=== PATIENT | female | born 1945 | race Caucasian/White ===

== ENCOUNTER 2016-10-10 11:07 | Inpatient (IN) | payer MEDICARE ==
[2016-10-10] MEDS ORDERED: SODIUM CHLORIDE 0.9% 1,000 ML IV STA (11:28)
[2016-10-10] MEDS ORDERED: ASPIRIN 81 MG CHEW PO STA (11:28)
[2016-10-10] MEDS ORDERED: NITROGLYCERIN SL TABS 0.4 MG TAB SUBLINGUAL STA ×3 (11:28)
--- NOTE | 2016-10-10 11:32 | ED ---
General Adult HPI - General Chief complaint: Chest Pain Stated complaint: chest pain Time Seen by Provider: 10/10/16 11:19 Source: patient, RN notes reviewed Mode of arrival: wheelchair Limitations: no limitations - History of Present Illness Initial comments: Patient is a pleasant [age]-year-old female presenting to the emergency department complaining of chest discomfort. Onset was around 10 AM. Discomfort is sharp. Originally patient states no radiation then later states it does radiate to the back. Patient does have some associated nausea and dyspnea. No diaphoresis. No history of similar symptoms previously. Discomfort is somewhat severe at this point. No leg pain or leg swelling. Area of discomfort is the lower sternal region. - Related Data Home Medications Medication Instructions Recorded Confirmed Aspirin 81 mg PO DAILY 10/10/16 10/10/16 Melatonin 5 mg PO HS 10/10/16 10/10/16 Metoprolol Tartrate [Lopressor] 50 mg PO DAILY 10/10/16 10/10/16 Niacin 500 mg PO TID 10/10/16 10/10/16 Omeprazole 20 - 40 mg PO DAILY PRN 10/10/16 10/10/16 Sertraline [Zoloft] 12.5 mg PO DAILY 10/10/16 10/10/16 Allergies Allergy/AdvReac Type Severity Reaction Status Date / Time Sulfa (Sulfonamide AdvReac Rash/Hives Verified 10/10/16 11:37 Antibiotics) Review of Systems ROS Statement: Those systems with pertinent positive or pertinent negative responses have been documented in the HPI. ROS Other: All systems not noted in ROS Statement are negative. Constitutional: Denies: fever Eyes: Denies: eye pain ENT: Denies: throat pain Respiratory: Reports: dyspnea. Denies: cough Cardiovascular: Reports: chest pain Endocrine: Denies: fatigue Gastrointestinal: Reports: nausea Genitourinary: Denies: dysuria Musculoskeletal: Denies: arthralgia Skin: Denies: rash Neurological: Denies: headache Past Medical History Past Medical History: Coronary Artery Disease (CAD), GERD/Reflux, Hyperlipidemia , Hypertension History of Any Multi-Drug Resistant Organisms: None Reported Past Surgical History: Orthopedic Surgery Past Psychological History: No Psychological Hx Reported Smoking Status: Current every day smoker Past Alcohol Use History: None Reported Past Drug Use History: None Reported General Exam Limitations: no limitations General appearance: alert Head exam: Present: atraumatic Eye exam: Present: normal appearance, PERRL ENT exam: Present: normal oropharynx Neck exam: Present: normal inspection Respiratory exam: Present: normal lung sounds bilaterally. Absent: chest wall tenderness Cardiovascular Exam: Present: regular rate, normal rhythm Expanded Peripheral pulses: 2+: Radial (R), Radial (L), Dorsalis Pedis (R), Dorsalis Pedis (L) GI/Abdominal exam: Present: soft, tenderness (Mild tenderness in the epigastric region, patient states her discomfort is more superior to this however). Absent : distended Extremities exam: Present: normal inspection. Absent: pedal edema, calf tenderness Back exam: Present: normal inspection Neurological exam: Present: alert Psychiatric exam: Present: normal affect, normal mood Skin exam: Present: normal color Course Vital Signs 10/10/16 10/10/16 10/10/16 11:10 11:46 11:52 Temperature 97.9 F Pulse Rate 87 73 78 Respiratory 24 Rate Blood Pressure 174/86 158/72 142/66 O2 Sat by Pulse 100 Oximetry 10/10/16 11:57 Temperature Pulse Rate 80 Respiratory Rate Blood Pressure 128/55 O2 Sat by Pulse Oximetry EKG Findings - EKG Comments: EKG Findings:: Normal sinus rhythm 76. DE 122. QRS 78. QT 388. QTC 436. Normal axis. Normal QRS. Normal ST-T. Medical Decision Making - Medical Decision Making Patient reevaluated and resting comfortably in bed. Symptoms free at this time. Patient and family updated on results and plan. Case was discussed in detail with Dr. Joseph, who will admit for hospital call. - Lab Data Result diagrams: 10/10/16 11:40 10/10/16 11:40 Lab Results 10/10/16 10/10/16 10/10/16 Range/Units 11:40 11:40 11:40 WBC 7.9 (3.8-10.6) k/uL RBC 4.62 (3.80-5.40) m/uL Hgb 13.7 (11.4-16.0) gm/dL Hct 44.5 (34.0-46.0) % MCV 96.3 (80.0-100.0) fL MCH 29.7 (25.0-35.0) pg MCHC 30.8 L (31.0-37.0) g/dL RDW 13.2 (11.5-15.5) % Plt Count 183 (150-450) k/uL Neutrophils % 76 % Lymphocytes % 17 % Monocytes % 5 % Eosinophils % 1 % Basophils % 0 % Neutrophils # 6.0 (1.3-7.7) k/uL Lymphocytes # 1.3 (1.0-4.8) k/uL Monocytes # 0.4 (0-1.0) k/uL Eosinophils # 0.1 (0-0.7) k/uL Basophils # 0.0 (0-0.2) k/uL PT (9.0-12.0) sec INR (<1.1) APTT (22.0-30.0) sec D-Dimer (<0.60) mg/L FEU Sodium 138 (137-145) mmol/L Potassium 4.2 (3.5-5.1) mmol/L Chloride 102 (98-107) mmol/L Carbon Dioxide 23 (22-30) mmol/L Anion Gap 13 mmol/L BUN 16 (7-17) mg/dL Creatinine 0.62 (0.52-1.04) mg/dL Est GFR (MDRD) Af Amer >60 (>60 ml/min/1.73 sqM) Est GFR (MDRD) Non-Af >60 (>60 ml/min/1.73 sqM) Glucose 161 H (74-99) mg/dL Calcium 9.7 (8.4-10.2) mg/dL Magnesium 1.5 L (1.6-2.3) mg/dL Total Bilirubin 1.5 H (0.2-1.3) mg/dL AST 223 H (14-36) U/L ALT 87 H (9-52) U/L Alkaline Phosphatase 165 H (38-126) U/L Total Creatine Kinase 99 (30-135) U/L CK-MB (CK-2) 1.7 (0.0-2.4) ng/mL CK-MB (CK-2) Rel Index 1.7 Troponin I <0.012 (0.000-0.034) ng/mL Total Protein 7.0 (6.3-8.2) g/dL Albumin 4.2 (3.5-5.0) g/dL Amylase 56 (30-110) U/L Lipase 33 (23-300) U/L // Range/Units 11:40 WBC (3.8-10.6) k/uL RBC (3.80-5.40) m/uL Hgb (11.4-16.0) gm/dL Hct (34.0-46.0) % MCV (80.0-100.0) fL MCH (25.0-35.0) pg MCHC (31.0-37.0) g/dL RDW (11.5-15.5) % Plt Count (150-450) k/uL Neutrophils % % Lymphocytes % % Monocytes % % Eosinophils % % Basophils % % Neutrophils # (1.3-7.7) k/uL Lymphocytes # (1.0-4.8) k/uL Monocytes # (0-1.0) k/uL Eosinophils # (0-0.7) k/uL Basophils # (0-0.2) k/uL PT 10.5 (9.0-12.0) sec INR 1.0 (<1.1) APTT 24.7 (22.0-30.0) sec D-Dimer 0.34 (<0.60) mg/L FEU Sodium (137-145) mmol/L Potassium (3.5-5.1) mmol/L Chloride (98-107) mmol/L Carbon Dioxide (22-30) mmol/L Anion Gap mmol/L BUN (7-17) mg/dL Creatinine (0.52-1.04) mg/dL Est GFR (MDRD) Af Amer (>60 ml/min/1.73 sqM) Est GFR (MDRD) Non-Af (>60 ml/min/1.73 sqM) Glucose (74-99) mg/dL Calcium (8.4-10.2) mg/dL Magnesium (1.6-2.3) mg/dL Total Bilirubin (0.2-1.3) mg/dL AST (14-36) U/L ALT (9-52) U/L Alkaline Phosphatase (38-126) U/L Total Creatine Kinase (30-135) U/L CK-MB (CK-2) (0.0-2.4) ng/mL CK-MB (CK-2) Rel Index Troponin I (0.000-0.034) ng/mL Total Protein (6.3-8.2) g/dL Albumin (3.5-5.0) g/dL Amylase (30-110) U/L Lipase (23-300) U/L - Radiology Data Radiology results: image reviewed (Chest x-ray and abdominal x-ray shows no acute process) Disposition Clinical Impression: Chest pain Disposition: ADMITTED IP TO THIS [facility] Referrals: Nonstaff,Physician [REFERRING] - 1-2 days Time of Disposition: 14:05
[2016-10-10 12:04] LABS: Basophils % (A) 0 %; CH 31.3; CHCM 32.7; Eosinophils # (A) 0.1 k/uL (0-0.7); Eosinophils % (A) 1 %; HCT 44.5 % (34.0-46.0); HDW 2.27; HGB 13.7 gm/dL (11.4-16.0); Luc # (Auto) 0.09; Luc % (Auto) 1; Lymphocytes # (A) 1.3 k/uL (1.0-4.8); Lymphocytes % (A) 17 %; MCH 29.7 pg (25.0-35.0); MCHC 30.8 g/dL (31.0-37.0); MCV 96.3 fL (80.0-100.0); Mean Platelet Volume 8.5; Monocytes # (A) 0.4 k/uL (0-1.0); Monocytes % (A) 5 %; Neutrophils % (A) 76 %; RBC 4.62 m/uL (3.80-5.40); RDW 13.2 % (11.5-15.5); WBC 7.9 k/uL (3.8-10.6); WBC (Perox) 8.23
[2016-10-10 12:14] LABS: Partial Thromboplastin Time 24.7 sec (22.0-30.0); Prothrombin Time 10.5 sec (9.0-12.0)
[2016-10-10 12:17] LABS: ALT 87 U/L (9-52); AST 223 U/L (14-36); Alkaline Phosphatase 165 U/L (38-126); Amylase 56 U/L (30-110); Anion Gap 13 mmol/L; Blood Urea Nitrogen 16 mg/dL (7-17); Calcium 9.7 mg/dL (8.4-10.2); Carbon Dioxide 23 mmol/L (22-30); Chloride 102 mmol/L (98-107); Glucose 161 mg/dL (74-99); Magnesium 1.5 mg/dL (1.6-2.3); Non-African American GFR(MDRD) >60 (>60 ml/min/1.73 sqM); Potassium 4.2 mmol/L (3.5-5.1); Sodium 138 mmol/L (137-145); Total Bilirubin 1.5 mg/dL (0.2-1.3)
--- NOTE | 2016-10-10 12:26 | XR ---
Abdomen HISTORY: Epigastric pain and shortness of breath Frontal view of the abdomen submitted on 2 images Lung bases show some questionable atelectatic change on the left. There is no pneumoperitoneum or bow el obstruction. There are overlying cardiac leads. Degenerative disc changes are present in the visua lized spine, there is an S-shaped thoracic lumbar scoliosis. IMPRESSION: Nonobstructive bowel gas pattern.
--- NOTE | 2016-10-10 12:30 | XR ---
EXAMINATION TYPE: XR chest 2V DATE OF EXAM: 10/10/2016 12:14 PM COMPARISON: Abdomen same date HISTORY: Chest pain TECHNIQUE: Frontal and lateral views of the chest are obtained. FINDINGS: There is a dextroscoliosis of the midthoracic spine. Bandlike area of increased attenuatio n is present at the left lung base. Prominent lung volume may be indicative of underlying COPD. Heart size is within normal limits. No pneumothorax or pleural effusion. IMPRESSION: Probable basilar atelectasis or scarring.
[2016-10-10 12:37] LABS: Creatine Kinase 99 U/L (30-135)
[2016-10-10 12:50] LABS: Creatine Kinase MB 1.7 ng/mL (0.0-2.4); Troponin I <0.012 ng/mL (0.000-0.034)
[2016-10-10] MEDS ORDERED: NITROGLYCERIN SL TABS 0.4 MG TAB SUBLINGUAL PRN (14:05)
[2016-10-10] MEDS ORDERED: MAGNESIUM SULFATE-D5W PMX 1 GM in DEXTROSE/WATER 1 100ML.BAG IVPB ONE ×2 (15:00→18:00)
--- NOTE | 2016-10-10 15:20 | US ---
EXAMINATION TYPE: US gallbladder DATE OF EXAM: 10/10/2016 COMPARISON: NONE CLINICAL HISTORY: Pain. Epigastric pain, nausea, patient not NPO: states she ate 4 hours prior to exa m, exam done portable in ER EXAM MEASUREMENTS: Liver Length: 16.2 cm Gallbladder Wall: 0.2 cm CBD: 0.6 cm Right Kidney: 10.3 x 4.7 x 5.2 cm Pancreas: tail obscured by overlying midline bowel gas, duct measures 0.3cm Liver: visualized portions wnl, limited by rib shadowing Gallbladder: 2.0cm hyperechoic shadowing area along posterior wall Evidence for sonographic Reynoso's sign: no CBD: measures in upper limits of normal at 0.6cm Right Kidney: no hydronephrosis or renal masses seen at this time, limited by rib shadowing and over lying bowel gas There is no ascites. IMPRESSION: There may be tumefactive sludge within the gallbladder. Gallbladder appears somewhat dist ended. Bile duct measurement is at the upper limit of normal.
[2016-10-10] MEDS ORDERED: ONDANSETRON 4 MG/2 ML VIAL IVP STA (15:37)
[2016-10-10 18:11] LABS: Creatine Kinase 64 U/L (30-135)
[2016-10-10 18:24] LABS: Creatine Kinase MB 1.2 ng/mL (0.0-2.4); Troponin I <0.012 ng/mL (0.000-0.034)
[2016-10-10] MEDS: NITROGLYCERIN OINT 1 INCH/GM PACKET TOPICAL SCH (18:53)
[2016-10-10] MEDS ORDERED: FLUCONAZOLE 150 MG TAB PO STA (19:41)
[2016-10-10] MEDS: NIACIN TR 500 MG CAPSULE.ER PO SCH (20:22)
[2016-10-10] MEDS: MELATONIN 5 MG TABLET PO SCH (20:22)
[2016-10-10] MEDS: AMPICILLIN-SULBACTAM 3 GM in SODIUM CHLORIDE 0.9% 100 ML IVPB SCH (20:22)
[2016-10-10] MEDS: SODIUM CHLORIDE 0.9% 1,000 ML IV SCH (20:33)
--- NOTE | 2016-10-10 21:48 | HP ---
The patient is a very pleasant 71-year-old female who came into the emergency department with complaints of epigastric abdominal pain, sharp in nature, radiating to the shoulder blades and patient also has epigastric right upper quadrant tenderness. Patient was nauseous and patient was complaining of chills and there is no documented fever yet. Patient does not have any leukocytosis at this point of time. Patient is admitted for rule out acute coronary syndrome and Cardiology was consulted. Patient's epigastric abdominal pain resolved with 3 sublingual nitroglycerin and Cardiology will further evaluate the patient regarding that. I mostly believe her symptoms are from her gallbladder. Surgery will be consulted. Unasyn will be empirically started. Patient may either have cholelithiasis or cholecystitis. The patient's Reynoso sign is positive. Pain is nonpleuritic, not associated with food, but started after coffee, she says. REVIEW OF SYSTEMS: CONSTITUTIONAL: No fever, no malaise, no fatigue. HEENT: No recent visual problems or hearing problems. Denied any sore throat. CARDIOVASCULAR: As described in HPI. PULMONARY: No shortness of breath, no cough, no hemoptysis. GASTROINTESTINAL: As described in HPI. NEUROLOGICAL: No headaches, no weakness, no numbness. HEMATOLOGICAL: Denies any bleeding or petechiae. GENITOURINARY: Denies any burning micturition, frequency, or urgency. MUSCULOSKELETAL/RHEUMATOLOGICAL: Denies any joint pain, swelling, or any muscle pain. ENDOCRINE: Denies any polyuria or polydipsia. The rest of the 14 point review of systems is negative. Home medications include: 1. Aspirin. 2. Melatonin. 3. Metoprolol. 4. Niacin. 5. Omeprazole. 6. Sertraline. 7. Sulfa drugs. Past medical history is significant for coronary artery disease, gastroesophageal reflux disease, hyperlipidemia, hypertension. The patient does smoke. Denied any alcohol abuse or any drug abuse. FAMILY HISTORY: Denied any premature coronary artery disease and significant history of cancer in the family. PHYSICAL EXAMINATION: VITAL SIGNS: Temperature 98.4, pulse of 86, respiratory rate of 18, blood pressure 128/66, saturating at 97% on room air. GENERAL: The patient is alert and oriented x3, not in any acute distress. Well developed, well nourished. HEENT: Pupils are round and equally reacting to light. EOMI. No scleral icterus. No conjunctival pallor. Normocephalic, atraumatic. No pharyngeal erythema. No thyromegaly. CARDIOVASCULAR: S1 and S2 present. No murmurs, rubs, or gallops. PULMONARY: Chest is clear to auscultation, no wheezing or crackles. ABDOMEN: Abdomen is soft. Patient has minimal tenderness in the right upper quadrant area. Reynoso sign is positive. MUSCULOSKELETAL: No joint swelling or deformity. EXTREMITIES: No cyanosis, clubbing, or pedal edema. NEUROLOGICAL: Gross neurological examination did not reveal any focal deficits. SKIN: No rashes. LABORATORY DATA: CBC, CMP are abnormal for elevated bilirubin of 1.5, AST is 223, ALT is 87, alkaline phosphatase is 165. Patient had a chest x-ray which did not show any pneumonic process. Abdominal x-ray: Nonobstructive bowel gas pattern. Chest x-ray did show some atelectasis. Ultrasound of the gallbladder did show some sludge within the gallbladder with minimal distention of the gallbladder. ASSESSMENT AND PLAN: 1. Epigastric abdominal pain. Patient is admitted for rule out acute coronary syndrome. Patient most likely has cholelithiasis or cholecystitis. Surgery will be consulted. Rest of the further management from cardiology perspective as per Cardiology. 2. Nicotine abuse history. Counseling was provided regarding that. 3. History of coronary artery disease. 4. Gastroesophageal reflux disease. 5. Hyperlipidemia. 6. Hypertension. 7. For above-mentioned chronic medical problems, will go ahead and continue her home medications. Patient's primary care physician is out of town in [facility].
--- NOTE | 2016-10-10 22:18 | P.PN ---
Progress Note - Text Please see full dictated report. Patient comes in with atypical chest pain with US showing gallstones/sludge. Elevated liver enzymes and clinical picture consistent with symptomatic gallstones. Her son also has multiple gallbladder attacks. On exam, no moderate abdominal pain. Patient resides in [place] and has all care at [facility] as she was camping away from home for the holidays. Recommend repeat comprehensive metabolic panel tonight for improvement of chemistries. Also, recommend local surgical care for lap cholecystectomy per her wishes.
[2016-10-10 22:55] LABS: Alkaline Phosphatase 306 U/L (38-126); Anion Gap 9 mmol/L; Blood Urea Nitrogen 11 mg/dL (7-17); Calcium 9.3 mg/dL (8.4-10.2); Carbon Dioxide 28 mmol/L (22-30); Chloride 103 mmol/L (98-107); Glucose 100 mg/dL (74-99); Non-African American GFR(MDRD) >60 (>60 ml/min/1.73 sqM); Potassium 4.3 mmol/L (3.5-5.1); Sodium 140 mmol/L (137-145); Total Bilirubin 2.6 mg/dL (0.2-1.3); Total Protein 7.1 g/dL (6.3-8.2)
[2016-10-10 23:02] LABS: ALT 1177 U/L (9-52)
[2016-10-10 23:08] LABS: Creatine Kinase 62 U/L (30-135)
[2016-10-10 23:11] LABS: Creatine Kinase MB 1.3 ng/mL (0.0-2.4); Troponin I <0.012 ng/mL (0.000-0.034)
[2016-10-10 23:17] LABS: AST 2048 U/L (14-36)
[2016-10-11] MEDS ORDERED: AMPICILLIN-SULBACTAM 2 GM in SODIUM CHLORIDE 0.9% 50 ML IVPB SCH ×2
[2016-10-11] MEDS: AMPICILLIN-SULBACTAM 3 GM in SODIUM CHLORIDE 0.9% 100 ML IVPB SCH ×5 (02:33→23:40)
[2016-10-11] MEDS: NITROGLYCERIN OINT 1 INCH/GM PACKET TOPICAL SCH ×5 (03:18→23:41)
[2016-10-11 07:37] LABS: ALT 804 U/L (9-52); Alkaline Phosphatase 238 U/L (38-126); Anion Gap 9 mmol/L; Blood Urea Nitrogen 9 mg/dL (7-17); Calcium 8.5 mg/dL (8.4-10.2); Carbon Dioxide 25 mmol/L (22-30); Chloride 107 mmol/L (98-107); Cholesterol 140 mg/dL (<200); Glucose 86 mg/dL (74-99); HDL Cholesterol 63 mg/dL (40-60); Non-African American GFR(MDRD) >60 (>60 ml/min/1.73 sqM); Potassium 4.2 mmol/L (3.5-5.1); Sodium 141 mmol/L (137-145); Total Bilirubin 2.4 mg/dL (0.2-1.3); Triglycerides 45 mg/dL (<150)
[2016-10-11 07:50] LABS: AST 979 U/L (14-36)
[2016-10-11] MEDS ORDERED: SERTRALINE 25 MG TAB PO SCH ×2 (09:00→15:34)
--- NOTE | 2016-10-11 10:07 | CONS ---
DATE OF CONSULTATION: This 71-year-old female who was camping at [facility] who had a sudden onset of epigastric discomfort with pain in the back almost at the same level. The pain was simultaneous. It did not radiate anywhere else. She was nauseous, sweaty and threw up. She was admitted and Cardiology was consulted because the pain was relieved with 3 sublingual nitroglycerin. Her first 12-lead ECG showed normal sinus rhythm with normal ST segments. Three set of cardiac enzymes have been normal. A second 12-lead ECG did show a very subtle ST depression inferolaterally. Currently she is pain free, but 3 sets of cardiac enzymes are normal. Importantly, her labs show that her liver enzymes were abnormal and showed an upward-downward trend. REVIEW OF SYSTEMS: No fever, chills or rigors. No cough or expectoration. She did have abdominal symptoms. No hematuria or dysuria. No strokes or seizures. No skin lesions. PAST MEDICAL HISTORY: She is nondiabetic, but she has hypertension and dyslipidemia. Medications include aspirin, melatonin, metoprolol, niacin, omeprazole, sertraline. Past history is also significant for history of coronary artery disease ( ). SOCIAL HISTORY: No alcohol or drug use. No family history of premature coronary artery disease. On examination, her blood pressure is 150/71 mmHg, pulse rate is in the 90s. She is afebrile, 98.7. Head and neck examination is normal. No JVD, thyromegaly, carotid bruits. Heart sounds S1, S2 are normal. No murmurs, no gallops. No rub. Breath sounds are normal. No rhonchi. No crackles. Equal air entry bilaterally. Abdomen is soft. There is a very subtle tenderness in the epigastric area, but there is no rebound. No guarding. Extremities are warm, no edema. The 12-lead ECG is described as above. Labs are as described as above. Significant rise and fall trend in the LFTs. IMPRESSION: 1. Epigastric discomfort, normal cardiac enzymes and a very subtle ECG change on serial ECG examination. I doubt that this is coronary in origin. 2. Most likely abdominal origin given the trend in the liver enzymes. 3. Dyslipidemia. 4. Hypertension. SUGGEST: Continue antihypertensive therapy and proceed with abdominal evaluation and treatment as appropriate. From a cardiac standpoint, she can follow up with her primary physician's in the [place] area and the [facility]. I will get a 2-D echo and Doppler study on her today and from a cardiac standpoint, she is cleared for any intervention or disposition thereafter.
[2016-10-11] MEDS: PANTOPRAZOLE 40 MG/10 ML VIAL IVP SCH (10:32)
[2016-10-11] MEDS: NIACIN TR 500 MG CAPSULE.ER PO SCH ×3 (10:33→20:38)
[2016-10-11] MEDS: METOPROLOL TARTRATE 50 MG TAB PO SCH (10:33)
[2016-10-11] MEDS: ASPIRIN 325 MG TAB PO SCH (12:13)
[2016-10-11] MEDS: SODIUM CHLORIDE 0.9% 1,000 ML IV SCH ×2 (12:14→18:35)
--- NOTE | 2016-10-11 12:47 | P.GSCN ---
History of Present Illness Consult date: 10/10/16 Reason for Consult: Gallstones Requesting physician: Mir Joseph History of present illness: The patient is a pleasant 71-year-old female who was admitted secondary to atypical chest pain after eating hotdogs camping the other day. She had an abdominal US showing gallstones/sludge. She also presented with elevated liver enzymes. She denies any moderate abdominal pain upon admission. She reports with nitro including aspirin, her chest pain had improved. She reports being a resident of [place], [place] and has all care at [facility] as she was camping away from home for the holidays. Secondary to her ultrasound findings, Gen. surgery is consulted for further evaluation and management. Review of Systems CONSTITUTIONAL: Denies any fever or chills. General medical care at [facility]. HEENT: Denies any trouble with vision, hearing or nosebleeds. No difficulty swallowing. LYMPHATIC: The patient denies any lumps and bumps around the neck. ENDOCRINE: Denies any thyroid disorders. Denies any blood sugar glucose intolerance. RESPIRATORY: Denies pneumonia. Denies any troubles with breathing or dyspnea on exertion. CARDIOVASCULAR: Denies any chest pain, palpitations, or recent heart attacks. GASTROINTESTINAL: Has previous colonoscopy. Has intolerance to cheese and milk. Ultrasound consistent with gallstones. Has gastroesophageal reflux disease. GENITOURINARY: Denies any blood in urine or increased urinary frequency. MUSCULOSKELETAL: Has back pain, stiffness, joint arthritis. NEUROLOGIC: Denies any numbness or tingling along the distal extremities. No seizure disorders or headaches. PSYCHIATRIC: History of depression. No suidical ideation. HEMATOLOGIC: Denies any abnormal bleeding or bruising. Past Medical History Past Medical History: GERD/Reflux, Hyperlipidemia, Hypertension, Osteoarthritis (OA) Additional Past Medical History / Comment(s): incont of urine, beginnings of cataracts, "can't eat cheese or ice cream but able to drink 2% milk" History of Any Multi-Drug Resistant Organisms: None Reported Past Surgical History: Hysterectomy, Orthopedic Surgery Additional Past Surgical History / Comment(s): lt shoulder reconstructie sx d/t fall, egd Past Anesthesia/Blood Transfusion Reactions: No Reported Reaction Past Psychological History: No Psychological Hx Reported Additional Psychological History / Comment(s): PT IS INDEPENDANT,LIVES AT HOME WITH HER SPOUSE,NO PETS. HAS 1 FRONT STEP TO ENTER HOME. NO HOME CARE SERVICE RECIEVED, MEDICAL EQUIPMENT: SHOWER CHAIR. PT RETIRED 6 YEARS AGO FROM [employer]. Smoking Status: Former smoker Past Alcohol Use History: None Reported Additional Past Alcohol Use History / Comment(s): STARTED SMOKING AT AGE 18(1960 ) AND QUIT 03-19-92. WAS SMOKING 1.5 PPD Past Drug Use History: None Reported - Past Family History Father Family Medical History: Cancer Additional Family Medical History / Comment(s): AT AGE 57 Mother Family Medical History: Rheumatoid Arthritis (RA) Additional Family Medical History / Comment(s): RAYNAULDS DISEASE. Medications and Allergies Home Medications Medication Instructions Recorded Confirmed Type Aspirin 81 mg PO DAILY 10/10/16 10/10/16 History Melatonin 5 mg PO HS 10/10/16 10/10/16 History Metoprolol Tartrate [Lopressor] 50 mg PO DAILY 10/10/16 10/10/16 History Niacin 500 mg PO TID 10/10/16 10/10/16 History Omeprazole 20 - 40 mg PO DAILY PRN 10/10/16 10/10/16 History Sertraline [Zoloft] 12.5 mg PO DAILY 10/10/16 10/10/16 History Allergies Allergy/AdvReac Type Severity Reaction Status Date / Time Sulfa (Sulfonamide AdvReac Rash/Hives Verified 10/10/16 11:37 Antibiotics) Surgical - Exam Vital Signs Temp Pulse Resp BP Pulse Ox 97.9 F 87 24 174/86 100 10/10/16 11:10 10/10/16 11:10 10/10/16 11:10 10/10/16 11:10 10/10/16 11:10 GENERAL: Well developed and in no acute distress. Pleasant. HEENT: No sclera icterus. Extraocular movements grossly intact. Moist buccal mucosa. Head is atraumatic, normocephalic. Hears conversational speech. No nasal drainage. NECK: Supple without lymphadenopathy. No JV distention. CHEST: Non-labored respirations and equal bilateral excursions. CARDIOVASCULAR: Regular rate and rhythm. Palpable 2+ radial pulses. ABDOMEN: Soft, nontender. Nondistended. MUSCULOSKELETAL: No clubbing, cyanosis or edema. NEUROLOGIC: No focal or lateralizing signs. PSYCH: Appropriate affect. Alert and oriented to person, place and time. Results - Labs 10/10/16 11:40 10/11/16 06:09 Abnormal Lab Results - Last 24 Hours (Table) 10/10/16 10/10/16 Range/Units 11:40 11:40 MCHC 30.8 L (31.0-37.0) g/dL Glucose 161 H (74-99) mg/dL Magnesium 1.5 L (1.6-2.3) mg/dL Total Bilirubin 1.5 H (0.2-1.3) mg/dL AST 223 H (14-36) U/L ALT 87 H (9-52) U/L Alkaline Phosphatase 165 H (38-126) U/L Diabetes panel 10/10/16 Range/Units 11:40 Sodium 138 (137-145) mmol/L Potassium 4.2 (3.5-5.1) mmol/L Chloride 102 (98-107) mmol/L Carbon Dioxide 23 (22-30) mmol/L BUN 16 (7-17) mg/dL Creatinine 0.62 (0.52-1.04) mg/dL Glucose 161 H (74-99) mg/dL Calcium 9.7 (8.4-10.2) mg/dL AST 223 H (14-36) U/L ALT 87 H (9-52) U/L Alkaline Phosphatase 165 H (38-126) U/L Total Protein 7.0 (6.3-8.2) g/dL Albumin 4.2 (3.5-5.0) g/dL Calcium panel 10/10/16 Range/Units 11:40 Calcium 9.7 (8.4-10.2) mg/dL Albumin 4.2 (3.5-5.0) g/dL Pituitary panel 10/10/16 Range/Units 11:40 Sodium 138 (137-145) mmol/L Potassium 4.2 (3.5-5.1) mmol/L Chloride 102 (98-107) mmol/L Carbon Dioxide 23 (22-30) mmol/L BUN 16 (7-17) mg/dL Creatinine 0.62 (0.52-1.04) mg/dL Glucose 161 H (74-99) mg/dL Calcium 9.7 (8.4-10.2) mg/dL Adrenal panel 05/26/17 Range/Units 11:40 Sodium 138 (137-145) mmol/L Potassium 4.2 (3.5-5.1) mmol/L Chloride 102 (98-107) mmol/L Carbon Dioxide 23 (22-30) mmol/L BUN 16 (7-17) mg/dL Creatinine 0.62 (0.52-1.04) mg/dL Glucose 161 H (74-99) mg/dL Calcium 9.7 (8.4-10.2) mg/dL Total Bilirubin 1.5 H (0.2-1.3) mg/dL AST 223 H (14-36) U/L ALT 87 H (9-52) U/L Alkaline Phosphatase 165 H (38-126) U/L Total Protein 7.0 (6.3-8.2) g/dL Albumin 4.2 (3.5-5.0) g/dL - Imaging US - abdomen: report reviewed (Findings with sludge as well as polyp and stones per my evaluation.), image reviewed Assessment and Plan Plan: 1. Recommend repeat comprehensive metabolic panel tonight for improvement of chemistries. 2. Also, recommend local surgical care for lap cholecystectomy per her wishes should her chemistries improved. 3. Agree with cardiac assessment. 4. Low-fat foods in the interim. 5. Alternatively, should her chemistries worsen that that may need surgical intervention while inpatient.
--- NOTE | 2016-10-11 12:51 | P.PN ---
Subjective Principal diagnosis: Gallstones The patient is a 71-year-old female who presents with history of symptomatic gallstones. This morning she is sitting in the chair with her at bedside. She denies any abdominal pain this morning. She has been nothing by mouth since midnight for additional cardiology studies. No reports nausea and vomiting. No reports of jaundice. Objective - Vital Signs Vital signs: Vital Signs Temp 98.7 F 10/11/16 08:00 Pulse 95 10/11/16 08:00 Resp 16 10/11/16 08:00 BP 150/71 10/11/16 08:00 Pulse Ox 95 10/11/16 08:03 Intake & Output 10/10/16 10/11/16 10/11/16 18:59 06:59 18:59 Weight 87.9 kg Other: Voiding Method Toilet Toilet Toilet # Voids 2 - Exam GENERAL: Well developed and in no acute distress. Pleasant. HEENT: No edith sclera icterus. Extraocular movements grossly intact. Moist buccal mucosa. Head is atraumatic, normocephalic. Hears conversational speech. No nasal drainage. NECK: Supple without lymphadenopathy. No JV distention. CHEST: Non-labored respirations and equal bilateral excursions. CARDIOVASCULAR: Regular rate and rhythm. Palpable 2+ radial pulses. ABDOMEN: Soft, nontender. Nondistended. MUSCULOSKELETAL: No clubbing, cyanosis or edema. NEUROLOGIC: No focal or lateralizing signs. PSYCH: Appropriate affect. Alert and oriented to person, place and time. - Labs CBC & Chem 7: 10/10/16 11:40 10/11/16 06:09 Labs: Abnormal Lab Results - Last 24 Hours (Table) 10/10/16 10/10/16 10/10/16 Range/Units 11:40 11:40 22:28 MCHC 30.8 L (31.0-37.0) g/dL Glucose 161 H 100 H (74-99) mg/dL Magnesium 1.5 L (1.6-2.3) mg/dL Total Bilirubin 1.5 H 2.6 H (0.2-1.3) mg/dL AST 223 H 2048 H (14-36) U/L ALT 87 H 1177 H (9-52) U/L Alkaline Phosphatase 165 H 306 H (38-126) U/L Total Protein (6.3-8.2) g/dL HDL Cholesterol (40-60) mg/dL 10/11/16 Range/Units 06:09 MCHC (31.0-37.0) g/dL Glucose (74-99) mg/dL Magnesium (1.6-2.3) mg/dL Total Bilirubin 2.4 H (0.2-1.3) mg/dL AST 979 H (14-36) U/L ALT 804 H (9-52) U/L Alkaline Phosphatase 238 H (38-126) U/L Total Protein 6.0 L (6.3-8.2) g/dL HDL Cholesterol 63 H (40-60) mg/dL Assessment and Plan (1) Gallstone Status: Acute (2) Elevated liver enzymes Status: Acute (3) Choledocholithiasis Status: Acute (4) Atypical chest pain Status: Acute (5) Hypertension Status: Acute Plan: 1. Her chemistries were reviewed with her in detail alongside with her demonstrating acute increase in her liver enzymes as well as total bilirubin. This is highly suspicious for choledocholithiasis. 2. Recommend gastroenterology evaluation for possible ERCP as repeat chemistries still demonstrate elevated numbers. 3. As a result of her new findings, recommend inpatient hospitalization. 4. Recommend nothing by mouth until further assessment and evaluation by GI group. 5. Discharge on hold pending evaluation by GI group.
--- NOTE | 2016-10-11 13:40 | ECHOF ---
Referral Reason:chest pain MEASUREMENTS -------- HEIGHT: 180.3 cm WEIGHT: 87.5 kg BP: 150/71 RVIDd: 2.7 cm (< 3.3) IVSd: 1.2 cm (0.6 - 1.1) LVIDd: 4.5 cm (3.9 - 5.3) LVPWd: 1.2 cm (0.6 - 1.1) IVSs: 1.5 cm LVIDs: 2.8 cm LVPWs: 1.5 cm LA Diam: 3.3 cm (2.7 - 3.8) LAESV Index (A-L): 23.01 ml/m Ao Diam: 3.2 cm (2.0 - 3.7) AV Cusp: 2.1 cm (1.5 - 2.6) MV EXCURSION: 17.614 mm (> 18.000) MV EF SLOPE: 94 mm/s (70 - 150) EPSS: 0.4 cm MV E Conor: 1.11 m/s MV DecT: 193 ms MV A Conor: 0.85 m/s MV E/A Ratio: 1.30 RAP: 5.00 mmHg RVSP: 39.18 mmHg FINDINGS -------- Sinus rhythm. This was a technically good study. The left ventricular size is normal. There is borderline concentric left ventricular hypertrophy. Overall left ventricular systolic function is normal with, an EF between 60 - 65 %. The right ventricle is normal in size and function. Normal LA size by volume 22+/-6 ml/m2. The right atrium is normal in size. There is mild aortic valve sclerosis. Mild mitral annular calcification present. There is trace to mild mitral regurgitation. Mild tricuspid regurgitation present. There is mild pulmonary hypertension. The right ventricular systolic pressure, as measured by Doppler, is 39.18mmHg. The pulmonic valve is normal. The aortic root size is normal. The inferior vena cava is mildly dilated. The pericardium is normal. CONCLUSIONS -------- 1. Sinus rhythm. 2. Mild mitral annular calcification present. 3. There is trace to mild mitral regurgitation. 4. Mild tricuspid regurgitation present. 5. There is mild pulmonary hypertension. 6. The right ventricular systolic pressure, as measured by Doppler, is 39.18mmHg. 7. The pulmonic valve is normal. 8. The aortic root size is normal. 9. The inferior vena cava is mildly dilated. 10. The pericardium is normal. 11. This was a technically good study. 12. The left ventricular size is normal. 13. There is borderline concentric left ventricular hypertrophy. 14. Overall left ventricular systolic function is normal with, an EF between 60 - 65 %. 15. The right ventricle is normal in size and function. 16. Normal LA size by volume 22+/-6 ml/m2. 17. The right atrium is normal in size. 18. There is mild aortic valve sclerosis. FARM TECHNICIAN: Marisol Riggins RDCS
--- NOTE | 2016-10-11 17:45 | PN ---
The patient is a 71-year-old admitted with cholelithiasis. Patient's liver enzymes ended up going up. Patient most probably has choledocholithiasis. Possibility of ascending cholangitis is low; although will continue the antibiotics for now. Surgery Dr. Jordan evaluated the patient and we consulted Dr. Briana Carrillo because elevated liver enzymes going up to around 2000 AST and 1000 ALT, which are now trended down. Bilirubin went up as well. Will repeat these liver enzymes tomorrow. If these liver enzymes, continue downward then patient will be discharged to follow up with the surgeon close to her home. REVIEW OF SYSTEMS: CARDIOVASCULAR: No chest pain, no orthopnea, no PND, no palpitations. PULMONARY: Denied any shortness of breath. No cough or hemoptysis. GASTROINTESTINAL: No diarrhea, nausea or vomiting. No abdominal pain. Normoactive bowel sounds. NEUROLOGIC: No headaches, no weakness, no numbness. Medications were reviewed. PHYSICAL EXAMINATION: VITAL SIGNS: Temperature 98.4, pulse of 66, respiratory rate of 16, blood pressure is 131/61, saturating at 95% on room air. GENERAL: The patient is alert and oriented x3, not in any acute distress. Well developed, well nourished. HEENT: Pupils are round and equally reacting to light. EOMI. No scleral icterus. No conjunctival pallor. Normocephalic, atraumatic. No pharyngeal erythema. No thyromegaly. CARDIOVASCULAR: S1 and S2 present. No murmurs, rubs, or gallops. PULMONARY: Chest is clear to auscultation, no wheezing or crackles. ABDOMEN: Soft, nontender, nondistended, normoactive bowel sounds. No palpable organomegaly. MUSCULOSKELETAL: No joint swelling or deformity. EXTREMITIES: No cyanosis, clubbing, or pedal edema. NEUROLOGICAL: Gross neurological examination did not reveal any focal deficits. SKIN: No rashes. LABORATORY DATA: As mentioned above. ASSESSMENT AND PLAN: 1. Cholelithiasis and choledocholithiasis with low possibility of ascending cholangitis. 2. Nicotine abuse. 3. Coronary artery disease. 4. Gastroesophageal reflux disease. 5. Possible peptic ulcer disease or gastritis as well. 6. Hypertension. Plan is to continue the present medications. IV fluids. Patient will be made inpatient. Patient was ruled out acute coronary artery syndrome as well and if patient's liver enzymes are trended down. Patient probably will be discharged tomorrow.
[2016-10-11] MEDS: MELATONIN 5 MG TABLET PO SCH (22:38)
[2016-10-12] MEDS: SODIUM CHLORIDE 0.9% 1,000 ML IV SCH ×2 (02:16→12:51)
[2016-10-12] MEDS: AMPICILLIN-SULBACTAM 3 GM in SODIUM CHLORIDE 0.9% 100 ML IVPB SCH ×2 (06:22→12:49)
[2016-10-12] MEDS: NITROGLYCERIN OINT 1 INCH/GM PACKET TOPICAL SCH ×2 (06:22→12:51)
[2016-10-12 07:21] VITALS: BP 156/74; PULSE 87; RESP 14; TEMP 96.9
[2016-10-12] MEDS: METOPROLOL TARTRATE 50 MG TAB PO SCH (08:11)
[2016-10-12] MEDS: NIACIN TR 500 MG CAPSULE.ER PO SCH (08:12)
[2016-10-12] MEDS: PANTOPRAZOLE 40 MG/10 ML VIAL IVP SCH (08:12)
[2016-10-12] MEDS: ASPIRIN 325 MG TAB PO SCH (08:12)
[2016-10-12 08:26] LABS: Basophils % (A) 0 %; CH 31.1; CHCM 31.9; Eosinophils # (A) 0.1 k/uL (0-0.7); Eosinophils % (A) 2 %; HCT 39.7 % (34.0-46.0); HDW 2.35; HGB 12.6 gm/dL (11.4-16.0); Luc # (Auto) 0.13; Luc % (Auto) 2; Lymphocytes % (A) 19 %; MCH 31.2 pg (25.0-35.0); MCHC 31.8 g/dL (31.0-37.0); Mean Platelet Volume 8.5; Monocytes # (A) 0.4 k/uL (0-1.0); Monocytes % (A) 7 %; Neutrophils # (A) 3.6 k/uL (1.3-7.7); Neutrophils % (A) 69 %; RBC 4.05 m/uL (3.80-5.40); RDW 13.3 % (11.5-15.5); WBC 5.2 k/uL (3.8-10.6); WBC (Perox) 5.37
[2016-10-12 08:39] LABS: ALT 436 U/L (9-52); AST 195 U/L (14-36); Alkaline Phosphatase 208 U/L (38-126); Anion Gap 5 mmol/L; Blood Urea Nitrogen 7 mg/dL (7-17); Calcium 8.6 mg/dL (8.4-10.2); Carbon Dioxide 27 mmol/L (22-30); Chloride 109 mmol/L (98-107); Glucose 101 mg/dL (74-99); Non-African American GFR(MDRD) >60 (>60 ml/min/1.73 sqM); Potassium 3.6 mmol/L (3.5-5.1); Sodium 141 mmol/L (137-145); Total Bilirubin 1.2 mg/dL (0.2-1.3); Total Protein 5.7 g/dL (6.3-8.2)
--- NOTE | 2016-10-12 10:54 | P.PN ---
Subjective Principal diagnosis: Gallstones The patient is a 71-year-old female who presents with history of symptomatic gallstones. She is doing well. She denies any abdominal pain. No reports of jaundice. She is ambulating in her room. Objective - Vital Signs Vital signs: Vital Signs Temp 96.9 F L 10/12/16 07:00 Pulse 87 10/12/16 07:00 Resp 14 10/12/16 07:00 BP 156/74 10/12/16 07:00 Pulse Ox 97 10/12/16 07:00 Intake & Output 10/11/16 10/12/16 10/12/16 18:59 06:59 18:59 Weight 92 kg Other: Voiding Method Toilet # Voids 2 - Exam GENERAL: Well developed and in no acute distress. Pleasant. HEENT: No sclera icterus. Extraocular movements grossly intact. Moist buccal mucosa. Head is atraumatic, normocephalic. Hears conversational speech. No nasal drainage. NECK: Supple without lymphadenopathy. No JV distention. CHEST: Non-labored respirations and equal bilateral excursions. CARDIOVASCULAR: Regular rate and rhythm. Palpable 2+ radial pulses. ABDOMEN: Soft, nontender. Nondistended. MUSCULOSKELETAL: No clubbing, cyanosis or edema. NEUROLOGIC: No focal or lateralizing signs. PSYCH: Appropriate affect. Alert and oriented to person, place and time. - Labs CBC & Chem 7: 10/12/16 08:03 10/12/16 08:03 Labs: Abnormal Lab Results - Last 24 Hours (Table) 10/12/16 Range/Units 08:03 Chloride 109 H (98-107) mmol/L Glucose 101 H (74-99) mg/dL AST 195 H (14-36) U/L ALT 436 H (9-52) U/L Alkaline Phosphatase 208 H (38-126) U/L Total Protein 5.7 L (6.3-8.2) g/dL Albumin 3.1 L (3.5-5.0) g/dL Assessment and Plan (1) Gallstone Status: Acute (2) Elevated liver enzymes Status: Acute (3) Choledocholithiasis Status: Acute (4) Atypical chest pain Status: Acute (5) Hypertension Status: Acute Plan: 1. Her liver chemistries have improved today. 2. Patient is cleared from a surgical standpoint for discharge for immediate follow-up for surgical intervention with her local surgeon for laparoscopic cholecystectomy. 3. In the interim low-fat diet advised.
[2016-10-12] MEDS ORDERED: FLUCONAZOLE 100 MG TAB PO ONE (14:17)
--- NOTE | 2016-10-12 15:05 | CONS ---
DATE OF CONSULTATION: Requesting physician: Dr. Joseph. REASON FOR CONSULTATION: Elevated LFTs and abdominal pain. HISTORY OF PRESENT ILLNESS: The patient is a 71-year-old pleasant lady who was admitted to the hospital with acute onset of severe epigastric pain and radiation to right upper quadrant that started about 2 days ago. She came to [place] for a camping trip with her and while she was fixing breakfast, she started having these symptoms. She came in the emergency room and was noted to have mild elevation of LFTs and bilirubin up to 1.5. However, yesterday her labs significantly increased with ALT and AST at 2048 and 1177 and bili went up to 2.6 and hence we are consulted for possible ERCP. The patient however, denies any further episodes of abdominal pain. She says she is feeling well. She reports no nausea or vomiting. She had repeat labs done today, bilirubin is down to 1.2. AST and ALT have are 195 and 436 respectively. She reports no fever, chills, night sweats. Her past medical history is significant for hypertension, gastroesophageal reflux disease, hypercholesterolemia, anxiety, depression. MEDICATIONS AT HOME: 1. Zoloft. 2. Aspirin. 3. Melatonin. 4. Lopressor. 5. Omeprazole. 6. ( ). ALLERGIES: SULFA. SOCIAL HISTORY: No smoking or alcohol use. FAMILY HISTORY: Unremarkable. REVIEW OF SYSTEMS: CARDIOPULMONARY: No chest pain or shortness of breath. GENITOURINARY: No dysuria or hematuria. MUSCULOSKELETAL: Unremarkable. SKIN: Unremarkable. ENDOCRINE: Unremarkable. PSYCHIATRIC: Unremarkable. NEUROLOGY: Unremarkable. ENT/vision: Unremarkable. CONSTITUTIONAL: No recent weight loss. No fevers, chills or night sweats. PAST SURGICAL HISTORY: Hysterectomy and right shoulder surgery. On physical examination, she appears comfortable in no apparent distress. Vital signs are stable. Blood pressure is 137/73, pulse 80, temperature 99. HEENT EXAMINATION: Unremarkable. Conjunctivae pink. Sclerae anicteric. Oral cavity, no lesions. NECK: No JVD or lymph node enlargement. Chest was clear to auscultation. HEART: Regular rate and rhythm. ABDOMEN: Soft. Bowel sounds are positive. No organomegaly. EXTREMITIES: No pedal edema. SKIN: No rashes. NEURO: Alert and oriented times three. No focal deficits. Labs from today, T-bili 1.2, AST 195, ALT 436, alk phos 208. CBC is within normal limits. Ultrasound of the abdomen did show evidence of sludge in the gallbladder with mild prominence of the common bile duct. IMPRESSION: This is a lady who presents with acute onset of severe epigastric pain without ultrasound showing sludge in the gallbladder and significant elevation of serum transaminases and bilirubin up to 2.5 g/dL. It is very likely we are dealing with gallstones as a CBD stone but in the last 24 hours her symptoms have significantly improved and serum transaminases have also improved to a great extent. It appears most likely she passed the CBD stone spontaneously. She is clinically asymptomatic for the last 24 hours and doing well. No evidence of acute cholecystitis. RECOMMENDATIONS: Since it appears that the patient has passed the CBD stone spontaneously I do not see a reason to proceed with an ERCP at this time. She is from the [facility] and she wants to go back and see her physicians over there and I recommended that she can be discharged home today with outpatient follow up with her family physician early next week. In the meantime, if she has recurrent symptoms, she was advised to go to the emergency room at the nearest hospital. Thank you for this consultation.
--- NOTE | 2016-10-13 13:36 | DS ---
DATE OF ADMISSION: 10/11/2016 DATE OF DISCHARGE: 10/12/2016 71-year-old admitted with choledocholithiasis and cholelithiasis and patient passed the gallstone. The patient liver enzymes were elevated because of which there was a concern and we kept the patient here. Patient's liver enzymes have come down now. Total bilirubin is 1.28, AST is 195 and ALT 436 and patient is being discharged today. The patient was seen and examined on the day of discharge vitals are stable. PHYSICAL EXAMINATION: GENERAL: The patient is alert and oriented x3, not in any acute distress. Well developed, well nourished. HEENT: Pupils are round and equally reacting to light. EOMI. No scleral icterus. No conjunctival pallor. Normocephalic, atraumatic. No pharyngeal erythema. No thyromegaly. CARDIOVASCULAR: S1 and S2 present. No murmurs, rubs, or gallops. PULMONARY: Chest is clear to auscultation, no wheezing or crackles. ABDOMEN: Soft, nontender, nondistended, normoactive bowel sounds. No palpable organomegaly. MUSCULOSKELETAL: No joint swelling or deformity. EXTREMITIES: No cyanosis, clubbing, or pedal edema. NEUROLOGICAL: Gross neurological examination did not reveal any focal deficits. SKIN: No rashes. Patient will follow with surgery close to her home which patient lives in [place]. FINAL DIAGNOSES: 1. Cholelithiasis and choledocholithiasis. Low possibility of cholecystitis or ascending cholangitis. Patient will not require any antibiotics. 2. Gastritis for which patient is taking omeprazole. She can continue that. 3. Ruled out acute coronary artery syndrome and unstable angina. 4. Coronary artery disease. 5. Hypertension. Please refer to my Depart Summary for further details of discharge medications. Activity as tolerated. Low fat diet, cardiac diet. Spent greater than 35 minutes in total discharge process.
== END 2016-10-12 15:03 | disposition home or self-care (01) | DRG 446 ==
LOC: EC 11:07 → 3OBS 14:05 → OBSVTOIN 10-11 13:43 → 4MS4W 10-11 14:31
PROVIDERS: ADMIT Internal Medicine; ATTEND Internal Medicine
DX: K80.64 Calculus of gallbladder and bile duct with chronic cholecystitis without obstruction (principal); I10 Essential (primary) hypertension; E78.5 Hyperlipidemia, unspecified; E78.00 Pure hypercholesterolemia, unspecified; F17.200 Nicotine dependence, unspecified, uncomplicated; I25.10 Atherosclerotic heart disease of native coronary artery without angina pectoris; K21.9 Gastro-esophageal reflux disease without esophagitis; K29.70 Gastritis, unspecified, without bleeding; Z79.82 Long term (current) use of aspirin; Z79.899 Other long term (current) drug therapy
CPT/HCPCS: 36415; 71020; 74000; 76705; 80053; 80061; 82150; 82550; 82553; 83690; 83735; 84484; 85025; 85379; 85610; 85730; 93005; 93306; 94760; 96361; 96365; 96366; 96367; 96374; 96375; 99285